=== PATIENT | female | born 1970 | race Caucasian/White ===

== ENCOUNTER 2019-02-22 06:19 | Emergency (ER) | payer OTHER ==
[2019-02-22 07:02] VITALS: BMI 45.0
--- NOTE | 2019-02-22 07:03 | PDOC ---
History of Present Illness - General Chief Complaint: Headache Stated Complaint: HEADACHE - History of Present Illness Initial Comments: The pt is a 48F w/ a history of HTN who presents for evaluation of a headache today. She describes it as gradual onset, b/l throbbing that is constant, non- radiating, not worsened or alleviated by anything that she can identify. She has not tried anything for her GAYLE today. She denies fevers/chills, vision changes, chest pain, trouble breathing, abdominal pain, vomiting, diarrhea, blood in her stool, or changes in sensation. 02/22/19 16:37 Past History - Past Medical History Allergies/Adverse Reactions: Allergies Allergy/AdvReac Type Severity Reaction Status Date / Time No Known Allergies Allergy Verified 02/22/19 07:00 Home Medications: Ambulatory Orders Lisinopril 5 mg PO DAILY 02/22/19 Metformin HCl [Glucophage] 1,000 mg PO BID 02/22/19 Sertraline HCl 50 mg PO DAILY 02/22/19 - Psycho Social/Smoking Cessation Hx Smoking History: Never smoked Have you smoked in the past 12 months: No Information on smoking cessation initiated: No Hx Alcohol Use: No Drug/Substance Use Hx: No Review of Systems - Review of Systems Able to Perform ROS?: Yes Comments:: GENERAL/CONSTITUTIONAL: No fever or chills. No weakness HEAD, EYES, EARS, NOSE AND THROAT: No change in vision. No change in hearing. No sore throat CARDIOVASCULAR: No chest pain or shortness of breath RESPIRATORY: Denies cough, hemoptysis GASTROINTESTINAL: No vomiting, diarrhea or constipation GENITOURINARY: No dysuria, frequency, or change in urination MUSCULOSKELETAL: No joint or muscle swelling or pain. No neck or back pain SKIN: No rash NEUROLOGIC: No vertigo, loss of consciousness, or change in strength/sensation ENDOCRINE: No increased thirst. No abnormal weight change HEMATOLOGIC/LYMPHATIC: No anemia, easy bleeding, or history of blood clots ALLERGIC/IMMUNOLOGIC: No hives or skin allergy 02/22/19 07:02 Is the patient limited Ukrainian proficient: No *Physical Exam - Vital Signs Last Vital Signs Temp Pulse Resp BP Pulse Ox 98.6 F 79 20 160/103 H 99 02/22/19 07:00 02/22/19 07:00 02/22/19 07:00 02/22/19 07:00 02/22/19 07:00 - Physical Exam GENERAL: Awake, alert, and oriented to person/place/time, in no acute distress HEAD: No signs of trauma, normocephalic, atraumatic EYES: PERRLA, EOMI, sclera anicteric, conjunctiva clear ENT: Hearing grossly normal, nares patent, oropharynx clear without exudates. Moist mucosa LUNGS: No distress, speaks in full sentences, clear to auscultation bilaterally HEART: Regular rate and rhythm, normal S1 and S2, no murmurs appreciated, peripheral pulses normal and equal bilaterally ABDOMEN: Soft, nontender, normoactive bowel sounds. No guarding, no rebound EXTREMITIES: Normal inspection, Normal range of motion, no edema. No clubbing or cyanosis NEUROLOGICAL: Cranial nerves II through XII grossly intact. Normal speech, normal gait, no focal sensorimotor deficits SKIN: Warm, Dry 02/22/19 07:02 Medical Decision Making - Medical Decision Making The pt is a 48F w/ a history of HTN who presents for evaluation of a headache today. ED Course HTN noted, Pt given home BP meds Tylenol, Reglan, IVF, Benadryl for GAYLE GAYLE not sudden onset and pt denies any associated neurologic symptoms Pt feels improved at this time Plan for D/C w/ PCP f/u Discharge instructions and return precautions given Patient in agreement and verbalized understanding Dispo: Home 02/22/19 09:28 Discharge - Discharge Information Problems reviewed: Yes Clinical Impression/Diagnosis: Headache Qualifiers: Headache type: unspecified Headache chronicity pattern: unspecified pattern Intractability: not intractable Qualified Code(s): R51 - Headache Condition: Improved Disposition: HOME - Admission No - Follow up/Referral Referrals: Liliana Bowie [Primary Care Provider] - - Patient Discharge Instructions Patient Printed Discharge Instructions: DI for Headache Additional Instructions: You were seen in the Emergency Department for evaluation of a headache. Review the handout provided at discharge. Follow up with your primary care provider within a week. For pain you may take Tylenol 650mg every 6 hours and Ibuprofen 600mg every 6-8 hours, alternating them each time. Return to the Emergency Department if you develop fevers, chest pain, trouble breathing, worsening symptoms, or any new/concerning symptoms. - Post Discharge Activity Work/Back to School Note: Back to Work
[2019-02-22] MEDS ORDERED: SODIUM CHLORIDE 0.9% 500 ML INFUS.BAG IV ONE (07:18)
[2019-02-22] MEDS ORDERED: LISINOPRIL 5 MG TABLET (FP) PO ONE (07:18)
[2019-02-22] MEDS ORDERED: METOCLOPRAMIDE HCL INJECTION 10 MG/2 ML VIAL IVPB ONE (07:18)
[2019-02-22] MEDS ORDERED: ACETAMINOPHEN 1000 MG/100 ML VIAL (NON FORMULARY) IVPB ONE (07:18)
--- NOTE | 2019-02-22 07:40 | PDOC ---
Attending Attestation - Resident Resident Name: Oswaldo Berrios - ED Attending Attestation I have performed the following: I have examined & evaluated the patient, The case was reviewed & discussed with the resident, I agree w/resident's findings & plan, Exceptions are as noted - HPI HPI: 02/22/19 09:42 Ms San is a 48 yo F who presents to the ER due to a headache Pt states that her headache has been present intermittently for the past 4 days no fevers or chills Pt has a frontal headache She goes to bed without a headache at night She awakens feeling anxious and with a frontal headache No trauma No focal weakness or numbness Pt has previously had these symptoms, was worked up by PMD Had an MRI several months ago which was reportedly negative - Physicial Exam PE: 02/22/19 07:40 GENERAL: The patient is in no acute distress. ENT: Ears normal, nares patent, oropharynx clear without exudates. Moist mucous membranes. NECK: Normal range of motion, supple LUNGS: Breath sounds equal, clear to auscultation bilaterally. No wheezes, and no crackles. HEART:Regular rate and rhythm, normal S1 and S2 without murmur, rub or gallop. ABDOMEN: Soft, nontender, normoactive bowel sounds. EXTREMITIES: Normal range of motion, no edema. NEUROLOGICAL: Cranial nerves II through XII grossly intact. Normal speech. No focal neurological deficits. SKIN: Warm, Dry, normal turgor, no rashes or lesions noted. 02/22/19 09:44 - Medical Decision Making 02/22/19 09:44 48 yo F presenting with headache that has been present for the past 4 days Pt neurologically intact, no trauma will give meds, IVF 02/22/19 09:45 Pt states that she feels better Will plan to discharge to home
[2019-02-22] MEDS ORDERED: LISINOPRIL 5 MG TABLET (FP) ONE (07:41)
[2019-02-22] MEDS ORDERED: ACETAMINOPHEN INJECTION 100 ML IVPB ONE (07:41)
[2019-02-22] MEDS ORDERED: METOCLOPRAMIDE HCL INJECTION 10 MG/2 ML VIAL ONE (07:42)
[2019-02-22 10:50] VITALS: BP 106/74; PULSE 70; TEMP 98.1
== END 2019-02-22 09:50 | disposition home or self-care (01) ==
LOC: JER 06:19
PROC: 3E033NZ Introduction of Analgesics, Hypnotics, Sedatives into Peripheral Vein, Percutaneous Approach (ICD-10-PCS; principal; 2019-02-22)
PROC: 3E033GC Introduction of Other Therapeutic Substance into Peripheral Vein, Percutaneous Approach (ICD-10-PCS; 2019-02-22)
DX: R51 Headache (principal); I10 Essential (primary) hypertension
CPT/HCPCS: 96374; 96375; 99281-25; J0131